=== PATIENT | male | born 1950 | race African-American/Black ===

== ENCOUNTER 2017-03-14 07:24 | Day surgery (SDC) | payer OTHER ==
[2017-03-14] MEDS ORDERED: D5 LR 1000 ML 1,000 ML IV ONE (07:35)
[2017-03-14] MEDS ORDERED: DIPRIVAN VIAL 20 ML ONE (09:03)
[2017-03-14 09:52] VITALS: BP 140/74
== END 2017-03-14 09:50 | disposition home or self-care (01) ==
LOC: SURG1 07:24
PROVIDERS: ATTEND Internal Medicine Gastroenterology
PROC: 0DBK8ZX Excision of Ascending Colon, Via Natural or Artificial Opening Endoscopic, Diagnostic (ICD-10-PCS; 2017-03-14)
PROC: 0DBM8ZX Excision of Descending Colon, Via Natural or Artificial Opening Endoscopic, Diagnostic (ICD-10-PCS; 2017-03-14)
PROC: 0DJD8ZZ Inspection of Lower Intestinal Tract, Via Natural or Artificial Opening Endoscopic (ICD-10-PCS; principal; 2017-03-14 09:00)
DX: Z12.11 Encounter for screening for malignant neoplasm of colon (principal); Z85.048 Personal history of other malignant neoplasm of rectum, rectosigmoid junction, and anus; K63.5 Polyp of colon; Z93.3 Colostomy status; D12.4 Benign neoplasm of descending colon; D12.2 Benign neoplasm of ascending colon
CPT/HCPCS: A4217; J3490; J7120